=== PATIENT | female | born 1950 | race Caucasian/White ===

== ENCOUNTER 2017-09-23 09:50 | Inpatient (IN) | payer MEDICARE, OTHER ==
[~2017-09-23] VITALS: Ht 167.6 cm; Wt 83.0 kg
[2017-09-23] MEDS ORDERED: ESTR2TAB PO (10:33)
[2017-09-23] MEDS ORDERED: DIAZ5TAB PO (10:33)
[2017-09-23] MEDS ORDERED: HYDR-89 PO (10:33)
[2017-09-23] MEDS ORDERED: FLUO20CA39 PO (10:33)
[2017-09-23] MEDS ORDERED: METF500T PO (10:33)
[2017-09-23] MEDS ORDERED: LISI1TAB11 PO (10:33)
[2017-09-23] MEDS ORDERED: ROSU20TA PO (10:33)
[2017-09-23 11:38] LABS: BASOPHILS # (AUTO) 0.1 X10'3 (0-0.2); BASOPHILS % (AUTO) 0.9 % (0-1); EOSINOPHILS # (AUTO) 0.5 X10'3 (0-0.9); EOSINOPHILS % (AUTO) 7.6 % (0-6); LYMPHOCYTES # (AUTO) 1.4 X10'3 (1.1-4.8); LYMPHOCYTES % (AUTO) 19.2 % (21-51); MEAN CORPUSCULAR VOLUME 91.2 FL (78-98); MEAN PLATELET VOLUME 13.1 FL (7.4-10.4); MONOCYTES # (AUTO) 0.3 X10'3 (0-0.9); MONOCYTES % (AUTO) 4.3 % (2-12); NEUTROPHILS # (AUTO) 4.9 X10'3 (1.8-7.7); PRE OP HEMATOCRIT 39.4 % (35.0-45.0); PRE OP HEMOGLOBIN 13.4 g/dL (12.0-16.0); PRE OP PLATELET COUNT 124 X10'3 (140-440); RED BLOOD COUNT 4.32 X10'6 (4.20-5.60)
[2017-09-23 11:44] LABS: CLARITY,URINE CLEAR (Clear); COLOR,URINE STRAW (Yellow); GLUCOSE, URINE NEGATIVE (Neg); KETONES,URINE NEGATIVE (Neg); LEUKOCYTE ESTERASE ,URINE NEGATIVE (Neg); NITRITES, URINE NEGATIVE (Neg); OCCULT BLOOD,URINE SMALL (Neg); PROTEIN,URINE NEGATIVE (Neg); UA COLLECTION TYPE CLN CATCH MIDSTREAM; UROBILINOGEN,URINE 0.2 E.U/dL (0.2-1.0)
[2017-09-23 11:57] LABS: MUCUS STRANDS FEW /LPF (Neg); SQUAMOUS EPITHELIAL CELL,UR MANY /LPF (FEW)
[2017-09-23 11:58] LABS: BACTERIA,URINE FEW /HPF (Neg); RBC,URINE 0-2 /HPF (0-2); WBC,URINE 0-4 /HPF (0-4)
[2017-09-23 12:05] LABS: ALBUMIN 3.2 G/DL (3.4-5.0); ALBUMIN/GLOBULIN RATIO 0.9 (1.1-1.5); ALKALINE PHOSPHATASE 75 IU/L (46-116); BLOOD UREA NITROGEN 18 MG/DL (7-18); BUN/CREATININE RATIO 21.4 (6.6-38.0); CALCIUM 10.1 MG/DL (8.5-10.1); CHLORIDE 103 MMOL/L (99-107); CREATININE 0.84 MG/DL (0.40-0.90); PRE OP ALT 27 U/L (30-65); PRE OP ANION GAP 7 (8-16); PRE OP AST 22 U/L (10-37); PRE OP BILIRUB, TOTAL 0.3 MG/DL (0.0-1.0); PRE OP GLUCOSE 118 MG/DL (70-104); PRE OP POTASSIUM 3.5 MMOL/L (3.4-5.1); PRE OP SODIUM 141 MMOL/L (135-145); TOTAL PROTEIN 6.6 G/DL (6.4-8.2); eGFR 68 ML/MIN
[2017-09-29] VITALS (17 sets, daily range): BP systolic 117–164; BP diastolic 64–108
[2017-09-29] MEDS ORDERED: ringers solution, lacted 1,000 ML IV SCH ×2 (05:00→13:02)
[2017-09-29] MEDS ORDERED: ceFAZolin 2gm in dextrose, iso 100 ML IV ONE (05:30)
[2017-09-29] MEDS ORDERED: famotidine 20mg tablet PO ONE (05:30)
[2017-09-29] MEDS ORDERED: LIDOcaine 1% (10mg/ml) 2ml vial ONE (11:14)
[2017-09-29] MEDS ORDERED: proCHLORperazine 10 MG/2 ml inj IV PRN (13:05)
[2017-09-29] MEDS ORDERED: morphine 4 MG/ML inj SYRINge IV PRN ×2 (13:05)
[2017-09-29] MEDS ORDERED: meperidine/PF 50mg/ml syringe IV PRN (13:05)
[2017-09-29] MEDS ORDERED: fentaNYL/PF 50MCG/1 ML 2ML syringe IV PRN ×2 (13:05)
[2017-09-29] MEDS ORDERED: acetaminophen 1,000mg/100ml IV 100 ML IV PRN (13:05)
[2017-09-29] MEDS ORDERED: ondansetron/PF 4mg/2ml inj IV PRN ×2 (13:05→17:35)
[2017-09-29] MEDS ORDERED: BUPIVAcaine 0.5% inj/PF 30 ml vial ONE (13:46)
[2017-09-29] MEDS ORDERED: sevoflurane 250ml liquid IH ONE (14:04)
[2017-09-29] MEDS ORDERED: midazolam 2 mg/2 ml injection ONE (14:09)
[2017-09-29] MEDS ORDERED: fentaNYL/PF 50MCG/1 ML 2ML syringe ONE (14:09)
[2017-09-29] MEDS ORDERED: LIDOcaine 2% (20mg/ml) 5ml vial ONE (14:27)
[2017-09-29] MEDS ORDERED: ondansetron/PF 4mg/2ml inj ONE (14:27)
[2017-09-29] MEDS ORDERED: propofol inj 20 ML IV ONE (14:27)
[2017-09-29] MEDS ORDERED: dexamethasone sod phosphate 4mg/ml inj. ONE (14:27)
[2017-09-29] MEDS ORDERED: FLUO40CA10 PO (16:45)
[2017-09-29] MEDS ORDERED: insulin Lispro (HumaLOG) vial - multi-dose SQ SCH (16:55)
[2017-09-29] MEDS ORDERED: dextrose 50%-water 50ml dispensing syringe IV PRN ×2 (16:55)
[2017-09-29] MEDS ORDERED: MESSAGE TO PHARMACY PO ONE (16:55)
[2017-09-29] MEDS ORDERED: dextrose ORAL solution 15 GM/59 ML bottle PO PRN ×2 (16:55)
[2017-09-29] MEDS ORDERED: glucagon, human recombinant 1mg kit SUBCUT PRN (16:55)
[2017-09-29] MEDS ORDERED: HYDROcodone/acetaminophen 5mg/325mg tablet PO PRN (17:35)
[2017-09-29] MEDS: HYDROcodone/acetaminophen 10/325mg tab PO PRN ×2 (18:18→21:28)
[2017-09-29] MEDS ORDERED: IBUPROFEN PO SCH (20:00)
[2017-09-29] MEDS ORDERED: HYDROCODONE PO SCH (20:00)
[2017-09-29] MEDS ORDERED: insulin glargine (Lantus) pen - multi-dose SQ SCH (21:00)
[2017-09-29] MEDS: metFORMIN 500mg tablet PO SCH (21:26)
[2017-09-29] MEDS: diazepam 5mg tablet PO SCH (21:27)
[2017-09-30] VITALS: BP 115/64
[2017-09-30] MEDS: diazepam 5mg tablet PO SCH ×4 (02:40→21:28)
[2017-09-30 07:14] VITALS: BP 135/75
[2017-09-30] MEDS: HYDROcodone/acetaminophen 10/325mg tab PO PRN (07:34)
[2017-09-30] MEDS: estradiol 1mg tablet PO SCH (08:27)
[2017-09-30] MEDS: atorvastatin 20mg tablet PO SCH (08:28)
[2017-09-30] MEDS: metFORMIN 500mg tablet PO SCH ×2 (08:28→21:28)
[2017-09-30] MEDS: HYDROchlorothiazide 12.5mg capsule PO SCH (08:28)
[2017-09-30] MEDS: lisinopril 20mg tablet PO SCH (08:28)
[2017-09-30] MEDS: FLUoxetine 20mg capsule PO SCH (08:28)
[2017-09-30 11:56] VITALS: BP 101/53
[2017-09-30 15:15] VITALS: BP 110/54
[2017-09-30 20:00] VITALS: BP 108/55
[2017-10-01] VITALS: BP 108/52
[2017-10-01 03:01] VITALS: BP 108/55
[2017-10-01] MEDS: diazepam 5mg tablet PO SCH ×3 (03:23→14:29)
[2017-10-01 07:38] VITALS: BP 120/54
[2017-10-01] MEDS: estradiol 1mg tablet PO SCH (10:33)
[2017-10-01] MEDS: metFORMIN 500mg tablet PO SCH (10:34)
[2017-10-01] MEDS: FLUoxetine 20mg capsule PO SCH (10:35)
[2017-10-01] MEDS: HYDROchlorothiazide 12.5mg capsule PO SCH (10:35)
[2017-10-01] MEDS: lisinopril 20mg tablet PO SCH (10:35)
[2017-10-01] MEDS: atorvastatin 20mg tablet PO SCH (10:36)
[2017-10-01 11:00] VITALS: BP 139/75
[2017-10-01 20:00] VITALS: BP 124/54
== END 2017-10-01 19:39 | disposition home or self-care (01) | DRG 395 ==
LOC: EDSTATUS 09:50 → PAS IN 09-29 10:30 → EDSTATUS 09-29 11:00 → SUR 3N 09-29 17:03
PROVIDERS: ADMIT Surgery; ATTEND Surgery
PROC: 0DBP8ZZ Excision of Rectum, Via Natural or Artificial Opening Endoscopic (ICD-10-PCS; principal; 2017-09-29 14:04)
DX: K62.3 Rectal prolapse (principal); E11.9 Type 2 diabetes mellitus without complications; E66.9 Obesity, unspecified; I10 Essential (primary) hypertension; Z68.29 Body mass index [BMI] 29.0-29.9, adult; Z98.1 Arthrodesis status; Z90.710 Acquired absence of both cervix and uterus; Z90.49 Acquired absence of other specified parts of digestive tract; Z79.84 Long term (current) use of oral hypoglycemic drugs; Z79.899 Other long term (current) drug therapy
CPT/HCPCS: 36415; 80053; 81001; 82948; 83036; 85025; 87070; 88307; 93005; A4315; A4353; A6224; A6449; A7000; J0690; J1100; J1815; J2001; J2250; J2405; J2704; J3010; J3490; J7120

== ENCOUNTER 2018-07-06 07:06 | Inpatient (IN) | payer MEDICARE, OTHER | END 2018-07-11 14:15 | disposition home or self-care (01) | LOC: PAS IN 07:06 → SUR 3N 15:16 | PROC: 0DTN0ZZ Resection of Sigmoid Colon, Open Approach (ICD-10-PCS; principal; 2018-07-06 09:39) | PROC: 0DBP0ZZ Excision of Rectum, Open Approach (ICD-10-PCS; 2018-07-06 09:39) | DX: K62.3 Rectal prolapse (principal) ==

== ENCOUNTER 2019-04-26 06:57 | Observation (INO) | payer MEDICARE, OTHER ==
[2019-04-21 11:08] LABS: CLARITY,URINE SLIGHTLY CLOUDY (Clear); COLOR,URINE STRAW (Yellow); GLUCOSE, URINE NEGATIVE (Neg); KETONES,URINE NEGATIVE (Neg); LEUKOCYTE ESTERASE ,URINE NEGATIVE (Neg); NITRITES, URINE NEGATIVE (Neg); OCCULT BLOOD,URINE MODERATE (Neg); PH,URINE 5.5 (4.8-8.0); PROTEIN,URINE NEGATIVE (Neg); UROBILINOGEN,URINE 0.2 E.U/dL (0.2-1.0)
[2019-04-21 11:11] LABS: BASOPHILS # (AUTO) 0.1 X10'3 (0-0.2); BASOPHILS % (AUTO) 1.3 % (0-1); EOSINOPHILS # (AUTO) 0.4 X10'3 (0-0.9); EOSINOPHILS % (AUTO) 5.8 % (0-6); LYMPHOCYTES # (AUTO) 1.9 X10'3 (1.1-4.8); LYMPHOCYTES % (AUTO) 25.3 % (21-51); MEAN CORPUSCULAR HEMOGLOBIN 30.2 PG (27.0-31.0); MEAN CORPUSCULAR HGB CONC 33.6 g/dL (33.0-36.5); MEAN CORPUSCULAR VOLUME 89.9 FL (78-98); MONOCYTES # (AUTO) 0.5 X10'3 (0-0.9); NEUTROPHILS # (AUTO) 4.7 X10'3 (1.8-7.7); NEUTROPHILS % (AUTO) 61.6 % (42-75); PRE OP HEMATOCRIT 39.9 % (35.0-45.0); PRE OP HEMOGLOBIN 13.4 g/dL (12.0-16.0); PRE OP PLATELET COUNT 192 X10'3 (140-440); RED BLOOD COUNT 4.43 X10'6 (4.20-5.60); RED CELL DISTRIBUTION WIDTH 16.4 % (11.5-14.5)
[2019-04-21 11:21] LABS: UA COLLECTION TYPE CLN CATCH MIDSTREAM
[2019-04-21 11:22] LABS: SQUAMOUS EPITHELIAL CELL,UR MODERATE /LPF (FEW)
[2019-04-21 11:23] LABS: BACTERIA,URINE FEW /HPF (Neg); MUCUS STRANDS FEW /LPF (Neg); RBC,URINE 0-2 /HPF (0-2); WBC,URINE 0-4 /HPF (0-4)
[2019-04-21 11:29] LABS: ALBUMIN 3.7 G/DL (3.4-5.0); ALBUMIN/GLOBULIN RATIO 0.9 (1.1-1.5); ALKALINE PHOSPHATASE 82 IU/L (46-116); BLOOD UREA NITROGEN 11 MG/DL (7-18); BUN/CREATININE RATIO 13.6 (6.6-38.0); CALCIUM 10.3 MG/DL (8.5-10.1); CHLORIDE 102 MMOL/L (99-107); CREATININE 0.81 MG/DL (0.40-0.90); PRE OP ALT 16 U/L (30-65); PRE OP ANION GAP 10 (8-16); PRE OP AST 15 U/L (10-37); PRE OP BILIRUB, TOTAL 0.4 MG/DL (0.0-1.0); PRE OP GLUCOSE 86 MG/DL (70-104); PRE OP POTASSIUM 3.5 MMOL/L (3.4-5.1); PRE OP SODIUM 139 MMOL/L (135-145); TOTAL CARBON DIOXIDE 27.2 MMOL/L (24-32); TOTAL PROTEIN 7.6 G/DL (6.4-8.2); eGFR 71 ML/MIN
[2019-04-21 12:18] LABS: PLATELET ESTIMATE NORMAL
[2019-04-21 12:20] LABS: LARGE PLATELETS FEW
[2019-04-26] VITALS (23 sets, daily range): BP systolic 108–174; BP diastolic 55–99
[~2019-04-26] VITALS: Ht 167.6 cm; Wt 68.0 kg
[~2019-04-26 06:57] MED LIST: ESTR2TAB PO; FLUO40CA10 PO; HYDR-4353 PO; LISI1TAB28 PO; METF500T PO; ROSU20TA2 PO; cefazolin/dext.iso 2gm/50ml 50 ML IV ONE; famotidine 20mg tablet PO ONE; ringers solution, lacted 1,000 ML IV ONE; sevoflurane 250ml liquid IH ONE
[2019-04-26] MEDS ORDERED: ringers solution, lacted 1,000 ML IV SCH (09:30)
[2019-04-26] MEDS ORDERED: morphine 4 MG/ML inj SYRINge IV PRN ×2 (09:30)
[2019-04-26] MEDS ORDERED: meperidine/PF 25mg/ml syringe IV PRN ×2 (09:30)
[2019-04-26] MEDS ORDERED: ondansetron/PF 4mg/2ml inj IV PRN (09:30)
[2019-04-26] MEDS ORDERED: proCHLORperazine 10 MG/2 ml inj IV PRN (09:30)
[2019-04-26] MEDS ORDERED: ceFAZolin 1000mg inj ONE (10:10)
[2019-04-26] MEDS ORDERED: BUPIVACAINE liposomal/PF 13.3 MG/ML vial IM ONE (10:10)
[2019-04-26] MEDS ORDERED: BUPIVAcaine/PF 2.5 mg/ml (0.25%) 30ml vial ONE (10:10)
[2019-04-26] MEDS ORDERED: fentaNYL /PF 50mcg/ml 5ml ampule ONE (10:47)
[2019-04-26] MEDS ORDERED: midazolam 2 mg/2 ml injection ONE (10:47)
[2019-04-26] MEDS ORDERED: propofol inj 20 ML IV ONE (10:56)
[2019-04-26] MEDS ORDERED: LIDOcaine 1%/PF 5ML 10 MG/ML VIAL ONE (10:56)
[2019-04-26] MEDS ORDERED: acetaminophen 1,000mg/100ml IV 100 ML IV ONE (11:53)
[2019-04-26] MEDS ORDERED: ondansetron/PF 4mg/2ml inj ONE (11:56)
[2019-04-26] MEDS ORDERED: glycopyrrolate 0.2mg/ml inj ONE (11:56)
[2019-04-26] MEDS ORDERED: neostigmine methylsulfate 1 MG/ML 10ml vial ONE (11:56)
--- NOTE | 2019-04-26 12:05 | NUR ---
Received from OR via [facility], accompanied by Anesthesiologist DR LION and report given by Anesthesiologist. PT DROWSY, ABDOMINAL W/DRSG AND ABDOMINAL BINDER IN PLACE. Addendum: 04/26/19 at 1231 by Osiris Chanel RN Amended: Links added.
[2019-04-26] MEDS ORDERED: CADD PCA waste documentation MC PRN (12:15)
[2019-04-26] MEDS ORDERED: HYDROcodone/acetaminophen 5mg/325mg tablet PO PRN (12:15)
[2019-04-26] MEDS ORDERED: naloxone 0.4 mg/ml inj IV PRN (12:15)
[2019-04-26] MEDS: meperidine/PF 25mg/ml syringe IV PRN ×2 (12:21→12:39)
[2019-04-26] MEDS: HYDROmorphone/NS 1 mg/ml CADD 50 ML IV SCH ×6 (13:19→23:00)
[2019-04-26] MEDS ORDERED: HYDROcodone/acetaminophen 10/325mg tab PO PRN (14:10)
[2019-04-26] MEDS ORDERED: ketorolac trometh. 30mg/ml inj. IV ONE (14:10)
--- NOTE | 2019-04-26 14:35 | NUR ---
Report called to receiving nurse. Transferred via GURNEY, 1 BAG OF Belongings ALONG CANE SENT W/PT TO ROOM 344B, TRANSFERRED ONTO BED W/SLIDER BOARD, PT TOLERATED WELL, PAIN MUCH IMPROVED, RECEIVING RN AT BEDSIDE TO RECEIVE PT, BLL, CALL LIGHT GIVEN, SIDE RAILS UP X 2. Special Issues communicated to receiving nurse. YES. Addendum: 04/26/19 at 1502 by Osiris Chanel RN Amended: Links added.
--- NOTE | 2019-04-26 15:27 | NUR ---
Received report from recovery room by Osiris MEZA.
[2019-04-26] MEDS: ceFAZolin inj. 1,000 MG in dextrose 5%-water 50ml 50 ML IV SCH ×2 (17:05→23:32)
--- NOTE | 2019-04-26 18:39 | NUR ---
Problems reprioritized. Patient report given, questions answered & plan of care reviewed with Inocencia MEZA.
[2019-04-26] MEDS: metFORMIN 500mg tablet PO SCH (19:40)
[2019-04-26] MEDS: Potassium Cl inj 20 MEQ in ringers solution, lacted 1,000 ML IV SCH (19:50)
[2019-04-27] VITALS: BP 112/64
[2019-04-27] MEDS: Potassium Cl inj 20 MEQ in ringers solution, lacted 1,000 ML IV SCH ×3 (00:53→23:57)
[2019-04-27] MEDS: HYDROmorphone/NS 1 mg/ml CADD 50 ML IV SCH ×8 (01:00→15:00)
[2019-04-27] MEDS: ondansetron/PF 4mg/2ml inj IV PRN ×2 (01:19→19:20)
--- NOTE | 2019-04-27 06:55 | NUR ---
Patient in room [facility]. I have received report from DERRICK BURNETT and had the opportunity to ask questions and assume patient care.
[2019-04-27 07:00] VITALS: BP 107/64
[2019-04-27 07:15] VITALS: BP 112/64
[2019-04-27] MEDS: FLUoxetine 20mg capsule PO SCH (09:01)
[2019-04-27] MEDS: lisinopril 20mg tablet PO SCH (09:02)
[2019-04-27] MEDS: HYDROchlorothiazide 12.5mg capsule PO SCH (09:02)
[2019-04-27] MEDS: metFORMIN 500mg tablet PO SCH ×2 (09:03→20:39)
[2019-04-27] MEDS: atorvastatin 20mg tablet PO SCH (09:03)
[2019-04-27] MEDS: estradiol 1mg tablet PO SCH (09:04)
[2019-04-27] MEDS: ceFAZolin inj. 1,000 MG in dextrose 5%-water 50ml 50 ML IV SCH (09:04)
--- NOTE | 2019-04-27 11:53 | NUR ---
Dr. Bender in to see patient. Dr. Bender aware patient has not had labs checked since 04/21. No new orders for lab draw at this time.
[2019-04-27] MEDS ORDERED: insulin Lispro (HumaLOG) vial - multi-dose SQ SCH (11:55)
[2019-04-27] MEDS ORDERED: glucagon, human recombinant 1mg kit SUBCUT PRN (11:55)
[2019-04-27] MEDS ORDERED: insulin regular, human vial - multi-dose SQ SCH (11:55)
[2019-04-27] MEDS ORDERED: dextrose ORAL solution 15 GM/59 ML bottle PO PRN ×2 (11:55)
[2019-04-27] MEDS ORDERED: dextrose 50%-water 50ml dispensing syringe IV PRN ×2 (11:55)
[2019-04-27] MEDS ORDERED: MESSAGE TO PHARMACY PO ONE (11:55)
[2019-04-27 12:51] VITALS: BP 100/88
--- NOTE | 2019-04-27 17:56 | NUR ---
Student documentation: I have reviewed and agree with assessments performed and documented by Janeth Student Nurse.
[2019-04-27] MEDS: HYDROcodone/acetaminophen 10/325mg tab PO PRN ×2 (18:47→23:57)
[2019-04-27 20:00] VITALS: BP 103/50
[2019-04-27] MEDS ORDERED: insulin glargine (Lantus) pen - multi-dose SQ SCH (21:00)
--- NOTE | 2019-04-27 23:30 | NUR ---
Patient continue to complain of pain located across her lower abd. Patient in tears states it hurts. Patient states pain medication is working but when she moves or gets up she feels like something is hanging/falling down. Charge nurse and nurse removed patient's surgical dressing to assess site. Surgical site looks good with sammie well approximated. Mild bruising noted. Site covered with 4x4 gauze and foam tape. ABD tighted. Patient states she feels better with ABD binder tighten. Will continue with care.
[2019-04-28] VITALS: BP 158/77
[2019-04-28] MEDS: HYDROcodone/acetaminophen 10/325mg tab PO PRN ×2 (04:04→08:59)
--- NOTE | 2019-04-28 06:46 | NUR ---
Patient in room [facility]. I have received report from DERRICK Pro and had the opportunity to ask questions and assume patient care.
--- NOTE | 2019-04-28 06:46 | NUR ---
Patient in room [facility]. I have received report from DERRICK BURNETT and had the opportunity to ask questions and assume patient care.
[2019-04-28 07:00] VITALS: BP 148/75
--- NOTE | 2019-04-28 08:40 | NUR ---
Patient exhibiting mild, redness on coccyx region. Area is blanchable. Addendum: 04/28/19 at 0845 by Delfino GUIDRY Amended: Links added.
[2019-04-28] MEDS: HYDROchlorothiazide 12.5mg capsule PO SCH (08:57)
[2019-04-28] MEDS: lisinopril 20mg tablet PO SCH (08:58)
[2019-04-28] MEDS: atorvastatin 20mg tablet PO SCH (08:59)
[2019-04-28] MEDS: metFORMIN 500mg tablet PO SCH (08:59)
[2019-04-28] MEDS: FLUoxetine 20mg capsule PO SCH (09:00)
[2019-04-28] MEDS: estradiol 1mg tablet PO SCH (09:00)
--- NOTE | 2019-04-28 11:34 | NUR ---
Dr. Bender in to see patient and stated patient will be discharged. Let Dr. Bender know that she has not passed gas, has hypo active bowel sounds and was unable to tolerate the mechanical soft diet given to her for dinner. Patient did have an episode of emesis last night per shift change report. However, patient is able to tolerate clears. Dr. Bender states that patient " looks good. the wound looks good and her stomach is soft. She can go home." And instructed to discharge patient and to follow up with Dr. Bender in one week.
[2019-04-28 12:05] VITALS: BP 145/70
--- NOTE | 2019-04-28 13:32 | NUR ---
Dr. Bender removed dressing over abd. [place] to lower abd cdi, approximated and asymptomatic. Per patient and spouse Dr Bender instructed to keep site PRATIBHA while she is home.
--- NOTE | 2019-04-28 13:43 | NUR ---
Discussed with patient discharge instructions and patient verbalizes understanding of discharge teaching. Patient has no complaints at this time. Patient dc'd with all personal belongings accompanied by x1 SN and spouse.
--- NOTE | 2019-04-28 17:07 | NUR ---
Student documentation: I have reviewed all interventions, assessments performed and documented by Andreea ALAMO
== END 2019-04-28 13:52 | disposition home or self-care (01) ==
LOC: PAS 06:57 → SUR 3N 12:15 → INTOOBSV 04-28 08:00 → OBSVTOIN 04-28 08:00 → UNDODISIN 04-28 13:52
PROVIDERS: ADMIT Surgery; ATTEND Surgery
DX: K43.2 Incisional hernia without obstruction or gangrene (principal); I10 Essential (primary) hypertension; E11.9 Type 2 diabetes mellitus without complications; F41.9 Anxiety disorder, unspecified; F32.9 Major depressive disorder, single episode, unspecified; E03.9 Hypothyroidism, unspecified
CPT/HCPCS: 36415; 49560; 49568; 80053; 81001; 82948; 83036; 85025; 86885; 86900; 86901; 86920; 93005; 96365; 96366; 96367; 96375; 96376; C1713; C1781; C9290; G0378; J0131; J0690; J1170; J1885; J2175; J2250; J2405; J2704; J2710; J3010; J3480; J3490; J3590; J7060; J7120; 88302; A4215; A4618; A6449; A7000; J1815

== ENCOUNTER 2019-05-30 10:09 | Emergency (ER) | payer MEDICARE, OTHER ==
[~2019-05-30] VITALS: Ht 167.6 cm; Wt 67.7 kg
[~2019-05-30 10:09] MED LIST changes: -cefazolin/dext.iso 2gm/50ml 50 ML IV ONE; -famotidine 20mg tablet PO ONE; -ringers solution, lacted 1,000 ML IV ONE; -sevoflurane 250ml liquid IH ONE
[2019-05-30 12:06] VITALS: BP 139/93
== END 2019-05-30 12:11 | disposition home or self-care (01) ==
LOC: ER 10:10
DX: K43.9 Ventral hernia without obstruction or gangrene (principal); R20.2 Paresthesia of skin; R20.0 Anesthesia of skin; M79.661 Pain in right lower leg; M79.662 Pain in left lower leg; R29.6 Repeated falls; Z79.899 Other long term (current) drug therapy; Z90.49 Acquired absence of other specified parts of digestive tract; Z98.890 Other specified postprocedural states
CPT/HCPCS: 99284

== ENCOUNTER 2019-05-31 12:45 | Day surgery (SDC) | payer MEDICARE, OTHER ==
[2019-05-31] MEDS ORDERED: LIDOcaine 1%/PF 5ML 10 MG/ML VIAL ONE (12:47)
== END 2019-05-31 13:51 | disposition home or self-care (01) ==
LOC: WOUND CARE 12:45
PROVIDERS: ATTEND Surgery
DX: L76.34 Postprocedural seroma of skin and subcutaneous tissue following other procedure (principal); I10 Essential (primary) hypertension; E03.9 Hypothyroidism, unspecified; E78.5 Hyperlipidemia, unspecified; G89.29 Other chronic pain; M54.9 Dorsalgia, unspecified; E11.9 Type 2 diabetes mellitus without complications; F32.9 Major depressive disorder, single episode, unspecified; F41.9 Anxiety disorder, unspecified
CPT/HCPCS: 10140; 76881; 87070; 87075; 87102; A4663